=== PATIENT | male | born 1965 | race Hispanic/Latino ===

== ENCOUNTER → 2025-04-09 | Outpatient (REF) | payer OTHER ==
[2025-04-09 15:46] LABS: BASOPHILS % 0.7 % (0.0-1.0); EOSINOPHILS % 4.0 % (0.0-6.0); LYMPHOCYTES % 22.6 % (18.0-39.1); MONOCYTES % 6.5 % (4.4-11.3); NEUTROPHILS % 65.4 % (38.7-80.0); RED CELL DISTRIBUTION WIDTH 12.6 % (11.7-14.4)
[2025-04-09 15:50] LABS: LEUKOCYTE ESTERASE ,URINE NEGATIVE (NEGATIVE); PROTEIN,URINE DIPSTICK 2+ (NEGATIVE); URINE UROBILINOGEN 0.2 mg/dL (0.2 - 1)
[2025-04-09 15:59] LABS: INR 1.29
[2025-04-09 16:03] LABS: WBC,URINE (MAN) 0-5 /HPF (0-5)
[2025-04-09 16:10] LABS: EST GLOMERULAR FILTRATION RATE 95.0 ML/MIN (>=60)
== END ==
LOC: RAD 13:29 → EDSTATUS 13:29 → RAD 14:00
PROVIDERS: ATTEND Internal Medicine Infectious Disease
DX: B20 Human immunodeficiency virus [HIV] disease (principal)
CPT/HCPCS: 36415; 80053; 81001; 85025; 85610; 85730; 93005